=== PATIENT | female | born 1960 | race Caucasian/White ===

== ENCOUNTER 2019-12-21 13:55 | Observation (INO) ==
[2019-12-21] MEDS ORDERED: MORPHINE IV PRN (20:06)
[2019-12-21] MEDS ORDERED: PERCOCET-5 PO ONE (20:24)
[2019-12-21] MEDS ORDERED: KLONOPIN PO ONE (20:25)
--- NOTE | 2019-12-21 20:47 | Diag Imaging Result Doc PS360 ---
EXAM: CHEST-PORTABLE 12/21/2019 HISTORY: wheezing TECHNIQUE: AP portable at 2034 COMMENT: There is ill-defined opacity in the right costophrenic angle which may be due to fluid and/or atelectasis. There are no previous studies. IMPRESSION: Questionable right pleural effusion. Electronically signed by Autsin Orona 12/21/2019 8:44 PM
[2019-12-21] MEDS ORDERED: FLU VACCINE IM ONE (20:52)
[2019-12-21] MEDS ORDERED: SODIUM CHLORIDE 0.9% INJ SCH (21:00)
[2019-12-21 21:01] LABS: BASO# 0.06 X1000 (0.0-0.2); BASO% 0.9 % (0.0-0.8); EOS% 8.7 % (0.0-10.0); HEMATOCRIT 28.9 % (37.0-47.0); HEMOGLOBIN 9.5 g/dL (12.0-16.0); IMM GRAN# 0.02 X1000 (0.0-0.04); IMM GRAN% 0.3 % (0.0-0.5); LYMPH# 2.43 X1000 (1.2-3.4); LYMPH% 35.4 % (20.5-51.1); MCH 31.1 PG (27-31); MCHC 32.9 g/dL (33-37); MCV 94.8 FL (81-99); MONO# 0.44 X1000 (0.11-0.59); MONO% 6.4 % (1.7-9.3); MPV 8.8 FL (7.4-10.4); NEUT# 3.31 X1000 (1.4-6.5); NEUT% 48.3 % (42.2-75.2); PLT 430 X1000 (130-400); RBC 3.05 XMIL (4.2-5.4); RDW 20.6 % (11.5-14.5); WBC 6.86 X1000 (4.8-10.8)
[2019-12-21] MEDS: ZOFRAN IV PRN (21:11)
[2019-12-21 21:15] LABS: AGAP 13; ALB/GLOB RATIO 0.7; ALBUMIN 2.4 g/dL (3.5-5.0); ALKALINE PHOSPHATASE 142 U/L (32-104); BUN 2 mg/dL (8-22); CALCIUM 8.1 mg/dL (8.8-10.2); CHLORIDE 97 mmol/L (98-107); COSMO 261; CREATININE 0.5 mg/dL (0.5-0.9); ESTIMATED GFR > 60; GLUCOSE 103 mg/dL (70-104); GOT 30 U/L (10-30); GPT 15 U/L (10-36); MAGNESIUM 1.4 mg/dL (1.5-2.7); POTASSIUM 4.2 mmol/L (3.5-5.1); SODIUM 132 mmol/L (136-145); TCO2 22 mmol/L (25-35); TOTAL BILIRUBIN 0.32 mg/dL (0.20-1.00); TOTAL PROTEIN 5.7 g/dL (6.3-8.3)
[2019-12-21 21:23] LABS: HEMOGLOBIN A1C 4.7 % (4.8-6.0)
[2019-12-21 21:36] LABS: INR 1.03; PROTIME 13.6 Seconds (11.0-16.0)
[2019-12-21] MEDS: NS 1,000 ML IV SCH (22:25)
[2019-12-21] MEDS: MAG-OX PO SCH (22:26)
[2019-12-21] MEDS: PROTONIX IV SCH (22:26)
[2019-12-21] MEDS: CORDARONE PO SCH (22:26)
--- NOTE | 2019-12-21 22:39 | HISTORY AND PHYSICAL ---
CHIEF COMPLAINT: Nausea, vomiting and weakness. HISTORY OF PRESENT ILLNESS: This is a 59-year-old female who was transferred here from [facility]. She has a past medical history of coronary artery disease, hypertension, hyperlipidemia, peptic ulcer disease, situational anxiety and depression, C difficile, GI bleed, anemia, atrial fibrillation, and chronic neck and back pain. She originally went for generalized weakness and nausea and vomiting to [place]. They did an MRI abdomen with and without contrast that showed mild fatty infiltration of the liver, biliary ductal dilation and flat pancreatic ductal dilation around 11 mm, and also mild intrahepatic biliary ductal dilation, and recommended ERCP. So, she was transferred to [facility] for ERCP. She will be admitted to the medical floor for further evaluation and treatment. PAST MEDICAL HISTORY: See HPI. PREVIOUS SURGICAL HISTORY: Hysterectomy and carpal tunnel syndrome. ALLERGIES: Penicillin causing anaphylaxis, sulfa causing hives, Indocin causing headaches, and Ceclor causing itch. SOCIAL HISTORY: She is a 1- to 1-txac-ajv-day smoker. She lives with her daughter. No alcohol or illicit drugs. FAMILY HISTORY: Mother had diabetes mellitus, coronary artery disease and arthritis. Father had a myocardial infarction and at age 67. HOME MEDICATIONS: Amiodarone 200 mg p.o. b.i.d., clonazepam 0.5 mg p.o. t.i.d., dicyclomine 10 mg p.o. daily, digoxin 125 mcg p.o. daily, diltiazem 90 mg p.o. every 6 hours, folic acid 1 mg p.o. daily, furosemide 20 mg p.o. daily, magnesium oxide 400 mg p.o. b.i.d., Oxycodone 7.5 mg p.o. t.i.d., Zanaflex 4 mg p.o. every 8 hours. REVIEW OF SYSTEMS: A 14-point review of systems was conducted with the patient. She has complaints of generalized weakness with multiple falls, dizziness, nausea, and vomiting. All other systems were reviewed and negative. Other pertinent positives are listed above in the HPI. PHYSICAL EXAMINATION: VITAL SIGNS: Temperature 98.2, blood pressure 110/60, heart rate 66, respirations 17, oxygen saturation 94% on room air. GENERAL: Pleasant 59-year-old female lying in the medical floor bed. She is alert and oriented x3. Answers all questions appropriately. HEENT: Head is atraumatic, normocephalic. Pupils equal, round, and reactive to light. Extraocular eye movement is intact. Sclerae are anicteric. Conjunctivae are mildly pale. Oral mucosa is moist. NECK: Supple. No JVD. No thyromegaly. Trachea is midline. No cervical lymphadenopathy. CARDIAC: S1 and S2 appreciated. No murmurs, gallops or rubs. LUNGS: Clear to auscultation bilaterally. No rhonchi, no rales. End expiratory wheezing noted throughout bilateral air haynes. Symmetrical rise and fall with respirations. ABDOMEN: Soft, nondistended, diffusely tender. Bowel sounds present in all 4 quadrants, normoactive. No pulsatile mass. No organomegaly. EXTREMITIES: No clubbing, cyanosis, or edema. Pedal pulses 2+ bilaterally. GENITOURINARY: No bladder distention. Patient voids. Otherwise deferred. NEUROLOGICAL: Alert and oriented x3. No focal motor deficits. Otherwise nonfocal examination. DIAGNOSTIC DATA: MRI of the abdomen with and without contrast from [facility] showed biliary and pancreatic ductal dilation described above in the HPI. There is no definite mass; however, a small ampullary or periampullary mass or stricture could not be excluded. LABORATORY DATA: New laboratory data is being gathered. This laboratory data was collected on 12/20/2019 at [facility]. WBCs 6.3, hemoglobin 8.7, hematocrit 26.1, platelet count 361. Sodium 136, potassium 3.6, chloride 102, carbon dioxide 23, BUN 4, creatinine 0.5, glucose 138. ASSESSMENT: 1. Rule out ampullary or periampullary mass or stricture with ERCP. 2. Nausea and vomiting. 3. Generalized weakness. 4. Coronary artery disease. 5. Congestive heart failure. 6. History of atrial fibrillation. 7. Chronic obstructive pulmonary disease. 8. Peptic ulcer disease. 9. Chronic pain syndrome. 10.Nicotine dependence. PLAN: Admit patient to the medical floor. Will place the patient on a daily proton pump inhibitor. Consult gastroenterology for ERCP tomorrow morning. N.p.o. after midnight. Will continue patient's home medications. Chest x-ray. Will start DuoNeb treatments. Continue her Cardizem, digoxin and amiodarone. Continue Klonopin and Oxycodone. Will give morphine p.r.n., max doses x2 tonight while she is n.p.o. Normal saline at 65 mL/hr. Nicotine patch 21 mg. Smoking cessation was gone over with the patient. She states that she has tried multiple times to quit, but she always starts back. She does not want to quit at this time. Further recommendations per patient's clinical course. Dictated by JASON Velarde for Josh Hartman MD cc: JASON Velarde MD Dr. Maria Onoya Acelajado
[2019-12-21] MEDS: DUONEB (A & A) INH SCH (23:07)
[2019-12-22] MEDS: MORPHINE IV PRN ×2 (01:04→05:19)
[2019-12-22] MEDS: CARDIZEM PO SCH ×4 (02:25→20:31)
[2019-12-22] MEDS: DUONEB (A & A) INH SCH ×4 (03:25→21:56)
--- NOTE | 2019-12-22 08:10 | EKG Report ---
Test Performed on : 12/22/2019 07:16:58 AM Test Reason : chest pain Blood Pressure : / mmHG Vent. Rate : 094 BPM Atrial Rate : 094 BPM P-R Int : 214 ms QRS Dur : 088 ms QT Int : 378 ms P-R-T Axes : 079 -49 045 degrees QTc Int : 472 ms Sinus rhythm. with 1st degree AV block. Low voltage QRS Left anterior fascicular block Abnormal ECG No previous ECGs available Confirmed by Florian Langston MD ([id number]) on 12/22/2019 7:33:39 PM
[2019-12-22] MEDS ORDERED: KLONOPIN PO SCH (09:00)
[2019-12-22] MEDS: ZOFRAN IV PRN ×4 (09:14→22:28)
[2019-12-22] MEDS: BENTYL PO SCH (09:15)
[2019-12-22] MEDS: CORDARONE PO SCH ×2 (09:15→20:31)
[2019-12-22] MEDS: LANOXIN PO SCH (09:16)
[2019-12-22] MEDS: MAG-OX PO SCH ×2 (09:16→20:31)
[2019-12-22] MEDS: LASIX PO SCH (09:16)
[2019-12-22] MEDS: NICODERM PATCH TD SCH (09:17)
[2019-12-22] MEDS: FOLIC ACID PO SCH (09:17)
[2019-12-22] MEDS: PERCOCET-5 PO PRN ×2 (10:08→18:00)
[2019-12-22] MEDS ORDERED: MORPHINE IV PRN (12:00)
[2019-12-22] MEDS: NS 1,000 ML IV SCH (13:07)
[2019-12-22] MEDS: ZANAFLEX PO PRN ×2 (13:08→22:27)
--- NOTE | 2019-12-22 14:23 | GASTROENTEROLOGY CONSULTATION ---
DATE: 12/22/2019 REASON FOR CONSULT: ERCP. HISTORY OF PRESENT ILLNESS: Ms. Bhakta is a 59-year-old female who was at [facility] and was transferred to [facility]. The patient was there with complaints of nausea, vomiting, and weakness and she said that she had a right upper quadrant pain which she mentioned that was 7/10 and describing as cramping pain. The patient has been having regular bowel movements and she has denied noticing any blood in her stools. The patient does have a history of coronary artery disease, hypertension, hyperlipidemia, GERD, anxiety, depression, GI bleed, anemia, atrial fibrillation, and chronic back pain and neck pain. The patient also has a history of Clostridium difficile in the past. An MRI was done at [facility] with and without contrast and as per the records it shows mild fatty infiltration of the liver, biliary ductal dilation and flat pancreatic ductal dilation around 11 mm and mild intrahepatic biliary ductal dilation and measurable mass noted. The patient currently denies any nausea, vomiting or abdominal pain. She was complaining that she has not eaten anything and wanted some real food. PAST MEDICAL HISTORY: Hypertension, hyperlipidemia, GERD, anxiety, depression, Clostridium difficile, GI bleed, anemia, atrial fibrillation, chronic neck pain, chronic back pain, blood clots in the lung and blood clots in the right arm. PAST SURGICAL HISTORY: Hysterectomy and carpal tunnel surgery. ALLERGIES: Penicillin, sulfa, Indocin, and Ceclor. SOCIAL HISTORY: She is , has 1 kid. She smokes 1 to 2 pack of cigarettes per day. Lives with her daughter. Has denied any alcohol or illicit drug use. FAMILY HISTORY: Positive for diabetes, heart disease and arthritis. HOME MEDICATIONS: Amiodarone 200 mg p.o. twice a day, digoxin 125 mcg p.o. daily, diltiazem 90 mg p.o. every 6 hours. Folic acid 1 mg p.o. daily, furosemide 20 mg p.o. daily, magnesium oxide 400 mg p.o. daily, Percocet 7.5 mg p.o. 3 times a day as needed. Bentyl 10 mg p.o. daily, tizanidine 4 mg p.o. every 8 hours as needed and Balsam Tatyana/Rampart Oil 30 mg p.o. PPI as directed. REVIEW OF SYSTEMS: As per HPI. Otherwise, 12 point review of system is negative. PHYSICAL EXAMINATION: Vital Signs: Temperature 98.4 degrees, pulse 97, respirations 19, blood pressure 119/62, oxygen saturation 100% on room air. Patient's weight is 142 pounds. BMI is 26.8 kg/m2. General: She is alert, oriented x3, in no acute distress. Answering questions appropriately. HEENT: Pale conjunctivae, no icterus. PERRL. Neck: Supple. Lungs: Clear to auscultation. Cardiovascular: The patient is tachycardic. Abdomen: Soft, nontender, nondistended. Active bowel sounds heard in all 4 quadrants. Extremities: No clubbing, no cyanosis, no edema. Pedal pulses 2+ present bilaterally. Neurologic: She is alert, oriented x3. Nonfocal. Cranial nerves 2-12 grossly intact. LABORATORY DATA: WBCs of 6.86, RBC 3.05, hemoglobin 9.5, hematocrit 28.9, platelet count is 430,000. PT 13.6, INR is 1.03. Sodium 132, potassium 4.2, chloride 97, carbon dioxide 22, anion gap is 13, BUN is 2, creatinine is 0.5, glucose 103, calcium 8.1, magnesium 1.4, total bilirubin 0.32, AST 30, ALT 15, alkaline phosphatase 142, albumin is 2.4. IMAGING: Chest x-ray yesterday showed questionable right pleural effusion. IMPRESSION AND PLAN: - Abnormal GI imaging - N/V - resolved - Anemia: normocytic - Elevated ALP - GERD - Tobacco abuse - Fatty liver PLAN: Ms. Bhakta is a 59-year-old female with a history of COPD, atrial fibrillation. GI has been consulted for an ERCP. We have received her medical records from [facility], she does have CBD 11 mm, but no measurable mass noted. She does have abnormal LFT's. From GI standpoint she can be discharged and we can do the ERCP as an outpatient. The patient is currently on a heart healthy diet. She is receiving IV fluids normal saline at 65 mL per hour. She is on PPIs daily. We will continue to monitor the patient and follow the plan of care per PCP. This plan was discussed with Dr. Quiros. Thank you for your consult. Please call us for any further questions or concerns. Dictated by JASON Hernandez for Jermaine Quiros MD Physician Attestation I have seen and examined the patient. I have discussed and reviewed the note by Heather GOMEZ and agree with findings and plan as documented. Patient incidentally found to have biliary dilation with abrupt narrowing at the distal CBD. No obvious stricture noted. LFTs are normal except minimally elevated ALP. She has some anemia without overt bleeding. Patient currently is asymptomatic. Recommend outpatient EGD/colonoscopy and EUS +/- ERCP. Follow-up with Dr. Quiros in 1-2 weeks. Will sign off. MTDD
[2019-12-22] MEDS ORDERED: LEVAQUIN 500 MG/D5W 500 MG/100 ML IVPB IV SCH (14:30)
--- NOTE | 2019-12-22 14:56 | PROGRESS NOTE ---
DATE: 12/22/2019 INTERVAL HISTORY: Patient transferred here from outside facility because of concerns for possible biliary obstruction. Reportedly, she had biliary and pancreatic duct dilation on MRCP there, but the report on that is not currently available. Her labs here show essentially normal LFTs aside from minimally elevated alkaline phosphatase. The patient without nausea, vomiting or abdominal pain. Complains primarily of chronic back pain. The patient initially was on oxycodone and Klonopin which she reported as home medications. On review of the PDMP, the patient is on Percocet 7.5 t.i.d., but has not had a regular prescription of Klonopin in over a year. Klonopin discontinued. The patient is afebrile. Vitals stable. No other complaints. REVIEW OF SYSTEMS: Twelve point review of systems negative, except as per interval history. LABS: WBC 6.8, hemoglobin 9.5, hematocrit 28.9, platelets 430. INR 1.03. Sodium 132, potassium 4.2, BUN 2, creatinine 0.5. A1c 4.7. Calcium 8.1, magnesium 1.4, total bilirubin 0.3, AST 30, ALT 15, alkaline phosphatase 142. TSH 161, free T4 1.17. VITALS: T-max 99.4, pulse 97, respirations 19, blood pressure 119/62, O2 saturation 100% on room air. PHYSICAL EXAMINATION: General: No acute distress. Vitals: As above. HEENT: Normocephalic, atraumatic. Moist mucous membranes. Neck: No cervical adenopathy. Cardiovascular: Regular rate and rhythm. No murmurs noted. Pulmonary: Clear to auscultation bilaterally. No wheezing, rales, or rhonchi. Abdomen: Soft, nontender, nondistended. Bowel sounds present. Extremities: Peripheral pulses intact. No clubbing or cyanosis. Neurologic: Cranial nerves grossly intact. No focal deficits identified. Psychiatric: Normal mood. Odd affect, but oriented x3 and largely cooperative. ASSESSMENT AND PLAN: 1. Possible biliary obstruction. Gastroenterology on board and following. Given relatively normal labs and current unavailability of her imaging from the outside facility, I am not entirely sure what they are going to do, but will follow and see. Recheck liver function tests in the morning. 2. Chronic pain. Continue home oxycodone as above. Klonopin discontinued as patient has not been prescribed regular Klonopin in over a year. 3. Coronary artery disease. The patient reportedly has coronary artery disease, but does not appear to be on any antiplatelet medications. We will see if we can clarify her cardiac history. 4. Paroxysmal atrial fibrillation. The patient is in normal sinus rhythm currently. Continue amiodarone, diltiazem. 5. Possible chronic congestive heart failure. Patient reportedly with history of heart failure on digoxin and Lasix at home, which we will continue. I suspect her heart failure is diastolic. No signs of overt volume overload. We will go ahead and check an echo so that we know what we are dealing with. Most of patient's care has been at either [place] or [place]. 6. Elevated lactate. Patient's initial lactate was elevated at outside facility, but recheck there was already back down to normal. 7. Hypomagnesemia. Repleting and will monitor. 8. Possible urinary tract infection. Patient thought to have urinary tract infection at outside facility. Did have joj-ynddvukg-sp-count white cells and significant bacteria with no epithelials. We will place her on Levaquin for a 3-day course given her allergies to penicillin, cefaclor, and sulfa. 9. Gastroesophageal reflux disease. Continue proton pump inhibitor. 10. Tobacco abuse. Patient has been counseled on cessation, but has no plans to quit currently. 11. Anemia. Monitor blood counts. No signs or symptoms of active bleeding. 12. Hyponatremia, mild. Monitor. 13. Chronic obstructive pulmonary disease. No wheezing, decreased air entry, or other sign of exacerbation at this time. Monitor.
[2019-12-22] MEDS: PROTONIX IV SCH (20:31)
[2019-12-22] MEDS ORDERED: MELATONIN PO SCH (21:00)
[2019-12-23] MEDS: PERCOCET-5 PO PRN ×2 (02:55→08:26)
[2019-12-23] MEDS: CARDIZEM PO SCH ×3 (02:56→10:16)
[2019-12-23] MEDS: ZOFRAN IV PRN ×2 (02:56→07:09)
[2019-12-23] MEDS: DUONEB (A & A) INH SCH ×2 (04:29→11:09)
[2019-12-23] MEDS: ZANAFLEX PO PRN (07:09)
[2019-12-23] MEDS: MAG-OX PO SCH (08:06)
[2019-12-23] MEDS: FOLIC ACID PO SCH (08:06)
[2019-12-23] MEDS: BENTYL PO SCH (08:07)
[2019-12-23] MEDS: CORDARONE PO SCH ×2 (08:07→08:11)
[2019-12-23] MEDS: LASIX PO SCH (08:08)
[2019-12-23] MEDS: LANOXIN PO SCH (08:08)
[2019-12-23] MEDS: NS 1,000 ML IV SCH (08:11)
[2019-12-23] MEDS: NICODERM PATCH TD SCH (08:12)
[2019-12-23 09:36] VITALS: BP 156/72
--- NOTE | 2020-01-15 11:32 | DISCHARGE SUMMARY ---
ADMISSION DATE: 12/21/2019 DISCHARGE DATE: 12/22/2019 DISCHARGE DIAGNOSES: 1. Possible biliary obstruction. 2. Chronic pain. 3. Coronary artery disease. 4. Paroxysmal atrial fibrillation. 5. Hypomagnesemia. 6. Gastroesophageal reflux disease. 7. Tobacco abuse. 8. Anemia. 9. Hyponatremia. 10. Chronic obstructive pulmonary disease without exacerbation. HOSPITAL COURSE: Patient presented as transfer from outside facility because of concern for possible biliary obstruction. Reportedly, she had biliary and pancreatic duct dilation on MRCP there. On arrival to our facility, patient was asymptomatic. Her bilirubin was normal at 0.32. Her AST and ALT were normal at 30 and 15, alkaline phosphatase was mildly elevated at 142. The case was discussed with GI, Dr. Quiros, who felt that, given the patient was asymptomatic and with essentially unremarkable labs, further workup could be obtained as an outpatient. The patient was discharged to follow up with them. They plan to do ERCP as an outpatient. DISCHARGE MEDICATIONS: No change from home medications aside from short course of oral Levaquin for possible urinary tract infection. The patient to follow up with PCP. Patient following up with GI in clinic for ERCP for further evaluation of incidentally noted minimal biliary and pancreatic duct dilation.
== END 2019-12-23 11:03 | disposition home or self-care (01) ==
LOC: DIRADM → OBSVTOIN 13:55 → INTOOBSV 13:55 → SUATTDRO 13:55 → 3N 19:39
PROVIDERS: ATTEND Internal Medicine